=== PATIENT | female | born 1995 | race Caucasian/White ===

== ENCOUNTER 2018-01-07 19:32 | Emergency (ER) | payer OTHER, SELFPAY ==
[2018-01-07 20:43] LABS: Urine Blood 1+ (NEG); Urine Glucose TRACE (NEG); Urine Protein NEGATIVE (NEG); Urine Specific Gravity 1.025 (1.005-1.030); Urine pH 5.5 (5.0-7.0)
[2018-01-07] MEDS ORDERED: NA CHLORIDE 0.9% 1,000 ML ONE (21:23)
[2018-01-07 21:46] LABS: Absolute Lymphocytes (CBC) 1.8 K/uL (0.7-4.9); Absolute Monocytes 0.7 K/uL (0.1-1.3); Absolute Neutrophil 7.1 K/uL (1.8-8.0); Basophils % 0.2 % (0-1.3); Eosinophils % 0.9 % (0-4.4); Hematocrit 44.5 % (36.0-45.0); Lymphocytes % 18.3 % (15.3-44.8); MCH 31.4 pg (27.0-35.0); MCV 90.7 fL (80-100); MPV 9.5 fL (7.6-11.3); Monocytes % 7.3 % (3.3-12.3)
[2018-01-07 22:01] LABS: Albumin 4.4 g/dL (3.4-5.0); Bilirubin Total 0.6 mg/dL (0.2-1.0); Potassium 4.1 mmol/L (3.5-5.1); Protein, Total 8.7 g/dL (6.4-8.2)
--- NOTE | 2018-01-07 22:46 | EDPHYS ---
Physician Documentation [facility] Name: Gloria Arroyo Age: 22 yrs Sex: Female : 1995 Arrival Date: 01/07/2018 Time: 19:35 Bed 16 Private MD: ED Physician Aldo Henry HPI: 01/07 21:53 This 22 yrs old Female presents to ER via Ambulatory with complaints of sarah VOMITING BLOOD. 21:53 The patient presents with abdominal pain in the epigastric area. Onset: The sarah symptoms/episode began/occurred today. The patient presents to the emergency department vomiting blood, a small amount. Onset: The symptoms/episode began/occurred today. Abdominal pain: none is appreciated. Modifying factors: The symptoms are alleviated by nothing, the symptoms are aggravated by nothing. The symptoms do not radiate. Associated signs and symptoms: The patient has no apparent associated signs or symptoms. Modifying factors: The symptoms are alleviated by nothing, the symptoms are aggravated by nothing. 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 - Social history:: Smoking status: Patient/guardian denies using tobacco, Patient/guardian denies using alcohol. - Ebola Screening: : Patient denies travel to an Ebola-affected area in the 21 days before illness onset. - Family history:: not pertinent. ROS: 21:53 Constitutional: Negative for fever, chills, and weight loss, Eyes: Negative for injury, sarah pain, redness, and discharge, ENT: Negative for injury, pain, and discharge, Neck: Negative for injury, pain, and swelling, Cardiovascular: Negative for chest pain, palpitations, and edema, Respiratory: Negative for shortness of breath, cough, wheezing, and pleuritic chest pain, Back: Negative for injury and pain, : Negative for injury, bleeding, discharge, and swelling, MS/Extremity: Negative for injury and deformity, Skin: Negative for injury, rash, and discoloration, Neuro: Negative for headache, weakness, numbness, tingling, and seizure, Psych: Negative for depression, anxiety, suicide ideation, homicidal ideation, and hallucinations, Allergy/Immunology: Negative for hives, rash, and allergies, Endocrine: Negative for neck swelling, polydipsia, polyuria, polyphagia, and marked weight changes, Hematologic/Lymphatic: Negative for swollen nodes, abnormal bleeding, and unusual bruising. 21:53 Abdomen/GI: Positive for nausea and vomiting, vomiting. Exam: 21:53 Constitutional: This is a well developed, well nourished patient who is awake, alert, sarah and in no acute distress. Head/Face: Normocephalic, atraumatic. Eyes: Pupils equal round and reactive to light, extra-ocular motions intact. Lids and lashes normal. Conjunctiva and sclera are non-icteric and not injected. Cornea within normal limits. Periorbital areas with no swelling, redness, or edema. ENT: Nares patent. No nasal discharge, no septal abnormalities noted. Tympanic membranes are normal and external auditory canals are clear. Oropharynx with no redness, swelling, or masses, exudates, or evidence of obstruction, uvula midline. Mucous membranes moist. Neck: Trachea midline, no thyromegaly or masses palpated, and no cervical lymphadenopathy. Supple, full range of motion without nuchal rigidity, or vertebral point tenderness. No Meningismus. Chest/axilla: Normal chest wall appearance and motion. Nontender with no deformity. No lesions are appreciated. Cardiovascular: Regular rate and rhythm with a normal S1 and S2. No gallops, murmurs, or rubs. Normal PMI, no JVD. No pulse deficits. Respiratory: Lungs have equal breath sounds bilaterally, clear to auscultation and percussion. No rales, rhonchi or wheezes noted. No increased work of breathing, no retractions or nasal flaring. Abdomen/GI: Soft, non-tender, with normal bowel sounds. No distension or tympany. No guarding or rebound. No evidence of tenderness throughout. Back: No spinal tenderness. No costovertebral tenderness. Full range of motion. Skin: Warm, dry with normal turgor. Normal color with no rashes, no lesions, and no evidence of cellulitis. MS/ Extremity: Pulses equal, no cyanosis. Neurovascular intact. Full, normal range of motion. Neuro: Awake and alert, GCS 15, oriented to person, place, time, and situation. Cranial nerves II-XII grossly intact. Motor strength 5/5 in all extremities. Sensory grossly intact. Cerebellar exam normal. Normal gait. Vital Signs: 19:46 BP 131 / 88; Pulse 65; Resp 18; Temp 98.8; Pulse Ox 100% on R/A; Weight 77.11 kg (R); aj1 Height 5 ft. 2 in. (157.48 cm); Pain 0/10; 21:31 BP 117 / 70; Pulse 70; Resp 18; Pulse Ox 100% on R/A; Pain 0/10; mg2 23:28 BP 120 / 78; Pulse 71; Resp 18; Pulse Ox 100% ; Pain 0/10; mg2 19:46 Body Mass Index 31.09 (77.11 kg, 157.48 cm) 1 MDM: 20:48 Patient medically screened. [facility] 01/07 20:24 Order name: Urine Dipstick--Ancillary (enter results); Complete Time: 21:04 [facility] 01/07 20:24 Order name: Urine --Ancillary (enter results); Complete Time: 21:04 [facility] 01/07 21:04 Order name: CBC with Diff [facility] 01/07 21:04 Order name: Comprehensive Metabolic Panel [facility] 01/07 21:04 Order name: Lipase [facility] 01/07 21:05 Order name: CBC with Automated Diff; Complete Time: 22:45 EDMS 01/07 21:05 Order name: Comprehensive Metabolic Panel; Complete Time: 22:45 EDMS 01/07 21:05 Order name: Lipase; Complete Time: 22:45 EDMS Administered Medications: 21:30 Drug: NS 0.9% 1000 ml Route: IV; Rate: 1 bolus; Site: left antecubital; mg2 23:28 Follow up: Response: No adverse reaction; IV Status: Completed infusion mg2 22:57 Drug: ProTONIX 80 mg Route: IVP; Site: left antecubital; jd3 23:27 Follow up: Response: No adverse reaction; Pain is decreased mg2 Disposition: 01/07/18 22:46 Discharged to Home. Impression: Gastrointestinal hemorrhage, unspecified, Vomiting. - Condition is Stable. - Discharge Instructions: Gastrointestinal Bleeding, Nausea and Vomiting, Nausea and Vomiting, [id number], Gastrointestinal Bleeding, [id number]. - Prescriptions for Protonix 40 mg Oral Tablet, Delayed Release (E.C.) - take 1 tablet by ORAL route once daily; 20 tablet. Zofran 4 mg Oral Tablet - take 1 tablet by ORAL route every 12 hours As needed; 20 tablet. - Medication Reconciliation Form, Thank You Letter, Antibiotic Education, Prescription Opioid Use form. - Follow up: Emergency Department; When: 2 - 3 days; Reason: Recheck today's complaints, Continuance of care, Re-evaluation by your physician. Follow up: [facility]; When: 2 - 3 days; Reason: Recheck today's complaints, Re-evaluation by your physician. - Problem is new. - Symptoms have improved. Signatures: Dispatcher [employer] EDMS Joy Lozano RN RN aj1 Aldo Henry MD MD cha Davies, Jonathon, RN RN jd3 Jaya Lee RN RN mg2 Corrections: (The following items were deleted from the chart) 22:46 22:46 01/07/2018 22:46 Discharged to Home. Impression: Gastrointestinal hemorrhage, sarah unspecified. Condition is Stable. Discharge Instructions: Gastrointestinal Bleeding, Gastrointestinal Bleeding, [id number], Nausea and Vomiting, Nausea and Vomiting, [id number]. Prescriptions for Protonix 40 mg Oral Tablet, Delayed Release (E.C.) - take 1 tablet by ORAL route once daily; 20 tablet, Zofran 4 mg Oral Tablet - take 1 tablet by ORAL route every 12 hours As needed; 20 tablet. and Forms are Medication Reconciliation Form, Thank You Letter, Antibiotic Education, Prescription Opioid Use. Follow up: Emergency Department; When: 2 - 3 days; Reason: Recheck today's complaints, Continuance of care, Re-evaluation by your physician. Follow up: [facility]; When: 2 - 3 days; Reason: Recheck today's complaints, Re-evaluation by your physician. Problem is new. Symptoms have improved. sarah 23:29 22:46 01/07/2018 22:46 Discharged to Home. Impression: Gastrointestinal hemorrhage, mg2 unspecified; Vomiting. Condition is Stable. Discharge Instructions: Gastrointestinal Bleeding, Gastrointestinal Bleeding, [id number], Nausea and Vomiting, Nausea and Vomiting, [id number]. Prescriptions for Protonix 40 mg Oral Tablet, Delayed Release (E.C.) - take 1 tablet by ORAL route once daily; 20 tablet, Zofran 4 mg Oral Tablet - take 1 tablet by ORAL route every 12 hours As needed; 20 tablet. and Forms are Medication Reconciliation Form, Thank You Letter, Antibiotic Education, Prescription Opioid Use. Follow up: Emergency Department; When: 2 - 3 days; Reason: Recheck today's complaints, Continuance of care, Re-evaluation by your physician. Follow up: [facility]; When: 2 - 3 days; Reason: Recheck today's complaints, Re-evaluation by your physician. Problem is new. Symptoms have improved. sarah
--- NOTE | 2018-01-07 22:46 | ER ---
Nurse's Notes [facility] Name: Gloria Arroyo Age: 22 yrs Sex: Female : 1995 Arrival Date: 01/07/2018 Time: 19:35 Bed 16 Private MD: Diagnosis: Gastrointestinal hemorrhage, unspecified;Vomiting Presentation: 01/07 19:42 Presenting complaint: Patient states: She has been having this weird feeling in her aj1 throat and then she vomited blood at approximately 1900 today. Denies abdominal pain, denies fever, denies diarrhea. States she is still having the "weird feeling" in her throat. Transition of care: patient was not received from another setting of care. Onset of symptoms was January 07, 2018 at 19:00. Risk Assessment: Do you want to hurt yourself or someone else? Patient reports no desire to harm self or others. Initial Sepsis Screen: Does the patient meet any 2 criteria? No. Patient's initial sepsis screen is negative. Does the patient have a suspected source of infection? No. Patient's initial sepsis screen is negative. Care prior to arrival: None. 19:42 Method Of Arrival: Ambulatory aj 19:42 Acuity: KIKI 3 aj1 Triage Assessment: 19:46 General: Appears in no apparent distress. comfortable, Behavior is calm, cooperative, aj1 appropriate for age. Pain: Denies pain. EENT: Reports she feels like there is swelling in her right lower jaw. Neuro: Level of Consciousness is awake, alert, obeys commands, Speech is normal, Facial symmetry appears normal. Cardiovascular: Patient's skin is warm and dry. Respiratory: Airway is patent Respiratory effort is even, unlabored, Respiratory pattern is regular, symmetrical. GI: Reports vomiting, Patient currently denies diarrhea, nausea. Derm: Skin is pink, warm \\T\\ dry. normal. SPECIMEN BOSS: 19:46 LMP N/A - Irregular menses aj1 Historical: - Allergies: 19:46 applesauce; aj1 - Home Meds: 19:46 None [Active]; aj1 - PMHx: 19:46 None; aj1 - PSHx: 19:46 None; aj1 - Immunization history:: Flu vaccine is not up to date. - Social history:: Smoking status: Patient/guardian denies using tobacco, Patient/guardian denies using alcohol. - Ebola Screening: : Patient denies travel to an Ebola-affected area in the 21 days before illness onset. - Family history:: not pertinent. Screenin:20 Abuse screen: Denies threats or abuse. Denies injuries from another. Nutritional mg2 screening: On. Tuberculosis screening: No symptoms or risk factors identified. Fall Risk None identified. Assessment: 20:21 General: Appears in no apparent distress. comfortable, Behavior is calm, cooperative. mg2 Pain: Denies pain. Neuro: Level of Consciousness is awake, alert, obeys commands, Oriented to person, place, time. Cardiovascular: Capillary refill < 3 seconds Patient's skin is warm and dry. Respiratory: Airway is patent Respiratory effort is even, unlabored, Respiratory pattern is regular, symmetrical. GI: Reports vomiting, of blood. : No signs and/or symptoms were reported regarding the genitourinary system. EENT: No signs and/or symptoms were reported regarding the EENT system. Derm: No signs and/or symptoms reported regarding the dermatologic system. Musculoskeletal: No signs and/or symptoms reported regarding the musculoskeletal system. Vital Signs: 19:46 BP 131 / 88; Pulse 65; Resp 18; Temp 98.8; Pulse Ox 100% on R/A; Weight 77.11 kg (R); aj1 Height 5 ft. 2 in. (157.48 cm); Pain 0/10; 21:31 BP 117 / 70; Pulse 70; Resp 18; Pulse Ox 100% on R/A; Pain 0/10; mg2 23:28 BP 120 / 78; Pulse 71; Resp 18; Pulse Ox 100% ; Pain 0/10; mg2 19:46 Body Mass Index 31.09 (77.11 kg, 157.48 cm) aj1 ED Course: 19:35 Patient arrived in ED. al2 19:46 Triage completed. aj1 19:46 Arm band placed on Patient placed in an exam room. aj1 20:00 Patient has correct armband on for positive identification. mg2 20:13 Jaya Lee RN is Primary Nurse. mg2 20:48 Aldo Henry MD is Attending Physician. sarah 21:31 Inserted saline lock: 20 gauge in left antecubital area, using aseptic technique. Blood mg2 collected. 22:46 Harry Lazcano MD is Referral Physician. sarah 23:26 No provider procedures requiring assistance completed. IV discontinued, intact, mg2 bleeding controlled, No redness/swelling at site. Pressure dressing applied. Administered Medications: 21:30 Drug: NS 0.9% 1000 ml Route: IV; Rate: 1 bolus; Site: left antecubital; mg2 23:28 Follow up: Response: No adverse reaction; IV Status: Completed infusion mg2 22:57 Drug: ProTONIX 80 mg Route: IVP; Site: left antecubital; jd3 23:27 Follow up: Response: No adverse reaction; Pain is decreased mg2 Outcome: 22:46 Discharge ordered by . sarah 23:26 Discharged to home ambulatory, with family. mg2 23:26 Condition: stable 23:26 Discharge instructions given to patient, family, Instructed on discharge instructions, follow up and referral plans. medication usage, Demonstrated understanding of instructions, follow-up care, medications, Prescriptions given X 2. 23:29 Patient left the ED. mg2 Signatures: Joy Lozano RN RN aj1 Aldo Henry MD MD cha Davies, Jonathon, RN RN Karen Nuñez Michele, RN RN mg2
[2018-01-07] MEDS ORDERED: PANTOPRAZOLE 40 MG INJ ONE (22:50)
== END 2018-01-07 23:29 | disposition home or self-care (01) ==
LOC: ER 19:32
DX: K92.2 Gastrointestinal hemorrhage, unspecified (principal); K92.0 Hematemesis; Z91.018 Allergy to other foods
CPT/HCPCS: 36415; 80053; 81003; 81025; 83690; 85025; 96361; 96374; 99284; C9113; J7030